=== PATIENT | female | born 1980 | race African-American/Black ===

== ENCOUNTER 2019-02-16 22:55 | Emergency (ER) | payer OTHER ==
--- NOTE | 2019-02-16 23:49 | RADIOLOGY REPORT (SQ) ---
EXAM DESCRIPTION: [facility]: Cervical spine radiographs Views: 3 CLINICAL HISTORY: 38 years Female, fall COMPARISON: None. FINDINGS: Odontoid view is normal. No focal subluxation. There is mild anterior ligament calcification at C4-C5 and C5-C6. Vertebral heights and disc spaces are preserved. No acute prevertebral edema. No acute fracture. IMPRESSION: 1. No acute fracture or subluxation.
--- NOTE | 2019-02-16 23:50 | RADIOLOGY REPORT (SQ) ---
EXAM DESCRIPTION: CT HEAD WITHOUT IV CONTRAST COMPLETED DATE/TME: 02/16/2019 00:00 CLINICAL HISTORY: 38 years, Female, fall COMPARISON: None. TECHNIQUE: Noncontrast CT images of the head were performed. Coronal and sagittal reformations were created. Images stored on PACS. All CT scanners at this facility use dose modulation, iterative reconstruction, and/or weight based dosing when appropriate to reduce radiation dose to as low as reasonably achievable (ALARA). [facility]: Dose Right [facility]: CareDose [facility]: Dose Right [facility]: Teradose 4D [facility]: [employer] Technologies LIMITATIONS: None. FINDINGS: Brain parenchyma is normal in attenuation. No acute intracranial hemorrhage, mass effect, or extra-axial fluid is seen. The ventricles, sulci, and basilar cisterns are normal in size and configuration. Globes and orbits are normal. Paranasal sinuses and mastoid air cells are clear. There are no depressed skull fractures. IMPRESSION: No acute intracranial abnormality. TECHNICAL DOCUMENTATION: Quality ID # 436: Final reports with documentation of one or more dose reduction techniques (e.g., Automated exposure control, adjustment of the mA and/or kV according to patient size, use of iterative reconstruction technique) copyright 2010 [employer]- All Rights Reserved
[2019-02-17] MEDS ORDERED: DIPH/PERTUSS(ACELL)/TETANUS VAC/PF 0.5 ML SYR (>=10YO) IM ONE (00:15)
[2019-02-17] MEDS ORDERED: ACETAMINOPHEN 325 MG TABLET PO ONE (00:28)
[2019-02-17] MEDS ORDERED: LIDOCAINE 1% INJ-PF (10 MG/ML) 30 ML SDV INJ ONE (01:49)
--- NOTE | 2019-02-17 02:47 | ER Document Report ---
ED General <JENAANGELITAERIKA - Last Filed: 02/17/19 02:52> - General TRAVEL OUTSIDE OF THE [place] IN LAST 30 DAYS: No <MELI LEONARDO - Last Filed: 02/17/19 03:11> - General Chief Complaint: Laceration Stated Complaint: FELL,LACERATION TO CHIN Time Seen by Provider: 02/17/19 00:02 Primary Care Provider: LILIBETH WISEMAN DO [Primary Care Provider] - Follow up as needed - HPI Notes: Patient is a 38-year-old female who presents to the emergency department for evaluation. She was actually on hospital grounds, had come to bring her mother to be evaluated. She tripped and fell, lacerating her chin. She complains of pain in her head and neck. She states her last tetanus shot was approximately 9 to 10 years ago. She denies loss of consciousness. No visual changes. (MELI LEONARDO) - Related Data Allergies/Adverse Reactions: nickel Allergy (Verified 02/16/19 22:58) Past Medical History - General Information source: Patient - Social History Smoking Status: Never Smoker Chew tobacco use (# tins/day): No Frequency of alcohol use: None Drug Abuse: None Family History: Reviewed & Not Pertinent Patient has suicidal ideation: No Patient has homicidal ideation: No - Past Medical History Cardiac Medical History: Reports: Hx Hypercholesterolemia, Hx Hypertension Endocrine Medical History: Reports: Hx Diabetes Mellitus Type 2 Renal/ Medical History: Denies: Hx Peritoneal Dialysis GI Medical History: Reports: Hx Irritable Bowel <MELI LEONARDO - Last Filed: 02/17/19 03:11> Review of Systems - Review of Systems Constitutional: No symptoms reported EENT: No symptoms reported Cardiovascular: No symptoms reported Respiratory: No symptoms reported Gastrointestinal: No symptoms reported Genitourinary: No symptoms reported Musculoskeletal: See HPI Skin: See HPI Neurological/Psychological: No symptoms reported <MELI LEONARDO - Last Filed: 02/17/19 03:11> Physical Exam <MEIL LEONARDO - Last Filed: 02/17/19 03:11> - Vital signs Vitals: Temp Pulse Resp BP Pulse Ox 98.3 F 112 H 18 146/97 H 98 02/16/19 23:04 02/16/19 23:04 02/16/19 23:04 02/16/19 23:04 02/16/19 23:04 - Notes Notes: Vital signs reviewed, please refer to chart. Head is normocephalic, atraumatic. Pupils equal round, reactive to light. Neck is supple without meningismus. Heart is regular rate and rhythm. Lungs are clear to auscultation bilaterally. Abdomen is soft, nontender, normoactive bowel sounds throughout. Extremities without cyanosis, clubbing. Posterior calves are nontender. Peripheral pulses are equal. Skin is warm and dry. She is a 1.5 cm U-shaped laceration under the chin with mild gaping and subcutaneous tissue. No foreign body. Patient is awake, alert, oriented x3. Cranial nerves II - XII are grossly intact without focal neurological deficits. Strength is plus 5 out of 5 bilateral lower extremities. Sensation is intact. Reflexes symmetrical. Intact [id number], rapid altering movements, [id number]-tocf. (MELI LEONARDO) Course - Diagnostic Test Radiology reviewed: Reports reviewed <MELI LEONARDO - Last Filed: 02/17/19 03:11> - Re-evaluation Re-evalutation: 02/17/19 03:09 Patient presents emergency department for evaluation after a fall. She had CT scan of the head and cervical spine ordered, no acute abnormality was noted. Attention was turned to the wound. Her tetanus is updated. Wound was cleansed and closed. Approximated well. Patient given wound care instructions. She is to follow-up with primary care next week for suture removal, return to the emergency department with worsening or new concerning symptoms of any sort. (MELI LEONARDO) - Vital Signs Vital signs: Temp Pulse Resp BP Pulse Ox 98.3 F 112 H 18 146/97 H 98 02/16/19 23:04 02/16/19 23:04 02/16/19 23:04 02/16/19 23:04 02/16/19 23:04 - Diagnostic Test Radiology results interpreted by me: 02/17/19 03:10 Cervical Spine X-Ray 02/16/19 00:00 IMPRESSION: 1. No acute fracture or subluxation. Head CT 02/16/19 00:00 IMPRESSION: No acute intracranial abnormality. TECHNICAL DOCUMENTATION: Quality ID # 436: Final reports with documentation of one or more dose reduction techniques (e.g., Automated exposure control, adjustment of the mA and/or kV according to patient size, use of iterative reconstruction technique) copyright 2011 [employer]- All Rights Reserved (MELI LEONARDO) Procedures - Laceration/Wound Repair chin Wound length (cm): 1.5 Wound's Depth, Shape: Flap Laceration pre-procedure: Sterile PPE donned, Sterile drapes applied, Shur-Clens applied Anesthetic type: 1% Lidocaine Volume Anesthetic (mLs): 4 Wound explored: Clean, No foreign body removed Wound Repaired With: Sutures Suture Size/Type: 6:0, Nylon Number of Sutures: 4 Layer Closure?: No Post-procedure NV exam normal: Yes Complications: No <ERIKA CAMP - Last Filed: 02/17/19 02:52> Discharge <ERIKA CAMP - Last Filed: 02/17/19 02:52> <MELI LEONARDO - Last Filed: 02/17/19 03:11> - Discharge Clinical Impression: Laceration of chin without complication Condition: Stable Disposition: HOME, SELF-CARE Instructions: Antibiotic Ointment Protection ([facility]), Laceration Care ([facility]), Tetanus Immunization Given ([facility]) Additional Instructions: Keep wound clean with soap and water. Have sutures removed in 5 to 7 days. If you develop increased redness, pain, fever, vomiting, or any other new concerning symptoms, return immediately to the emergency department for re- evaluation. Referrals: LILIBETH WISEMAN DO [Primary Care Provider] - Follow up as needed
[2019-02-17 03:55] VITALS: BP 139/72
== END 2019-02-17 03:55 | disposition home or self-care (01) ==
LOC: ER 22:55
DX: S01.81XA Laceration without foreign body of other part of head, initial encounter (principal); R51 Headache; M54.2 Cervicalgia; W19.XXXA Unspecified fall, initial encounter; Y92.481 Parking lot as the place of occurrence of the external cause; E11.9 Type 2 diabetes mellitus without complications; I10 Essential (primary) hypertension; Z23 Encounter for immunization
CPT/HCPCS: 99283; 90471; 72040; 70450; 90715; 12011; J3490

== ENCOUNTER → 2020-01-23 | Outpatient (CLI) | payer BC ==
[2020-01-23 12:44] LABS: ABSOLUTE LYMPHOCYTES (AUTO) 2.2 10^3/uL (0.5-4.7); ABSOLUTE MONOCYTES (AUTO) 0.5 10^3/uL (0.1-1.4); BASOPHILS % (AUTO) 0.5 % (0-2); EOSINOPHILS % (AUTO) 0.7 % (0-6); HEMATOCRIT 38.8 % (36.0-47.0); HEMOGLOBIN 13.6 g/dL (12.0-15.5); LYMPHOCYTES % (AUTO) 32.2 % (13-45); MEAN CORPUSCULAR HEMOGLOBIN 30.6 pg (27.0-33.4); MEAN CORPUSCULAR HGB CONC 35.1 g/dL (32.0-36.0); MEAN CORPUSCULAR VOLUME 87 fl (80-97); MONOCYTES % (AUTO) 7.8 % (3-13); PLATELET COUNT 253 10^3/uL (150-450); RED BLOOD COUNT 4.45 10^6/uL (3.72-5.28); RED CELL DISTRIBUTION WIDTH 12.4 % (11.5-14.0); SEGMENTED NEUTROPHILS % (AUTO) 58.8 % (42-78); TOTAL CELLS COUNTED % (AUTO) 100 %; WHITE BLOOD COUNT 6.8 10^3/uL (4.0-10.5)
[2020-01-23 13:05] LABS: ALBUMIN 4.3 g/dL (3.5-5.0); ALKALINE PHOSPHATASE 113 U/L (38-126); ANION GAP 10 (5-19); ASPARTATE AMINO TRANSFERASE 18 U/L (14-36); BILIRUBIN,TOTAL 0.5 mg/dL (0.2-1.3); BLOOD UREA NITROGEN 11 mg/dL (7-20); CALCIUM 9.5 mg/dL (8.4-10.2); CARBON DIOXIDE 26 mmol/L (22-30); CHLORIDE 98 mmol/L (98-107); CHOLESTEROL 226.55 mg/dL (0-200); GLUCOSE 373 mg/dL (75-110); POTASSIUM 4.5 mmol/L (3.6-5.0); TOTAL PROTEIN 7.8 g/dL (6.3-8.2); TRIGLYCERIDES 131 mg/dL (<150)
[2020-01-23 13:16] LABS: DIRECT LDL 175 mg/dL (<100)
[2020-01-24 12:36] LABS: CREATININE URINE 82.9 mg/dL (Not Estab.); MICROALBUMIN URINE 28.4 ug/mL (Not Estab.)
== END ==
LOC: OD 11:37
PROVIDERS: ATTEND Family Medicine
DX: E78.5 Hyperlipidemia, unspecified (principal); K21.0 Gastro-esophageal reflux disease with esophagitis; E11.9 Type 2 diabetes mellitus without complications
CPT/HCPCS: 36415; 80053; 80061; 82043; 82570; 83036; 84443; 85025

== ENCOUNTER 2020-02-03 08:50 | Day surgery (SDC) | payer BC ==
[~2020-02-03 08:50] MED LIST: LACTATED RINGERS 1000 ML IV PRN; LIDOCAINE 0.5% INJ-PF (5 MG/ML) 50 ML SDV SUBCUT PRN
[2020-02-03] MEDS ORDERED: PROPOFOL INJ 200 MG/20 ML VIAL IV ONE (11:02)
--- NOTE | 2020-02-03 11:53 | Operative Report ---
Operative Report DATE OF SURGERY: 02/03/20 Operative Report: The risks benefits and alternatives of the procedure explained to the patient in detail and informed consent is obtained.A GIF Olympus video scope was inserted into the patient's mouth and hypopharynx ,the esophagus is identified intubated and insufflated ,the scope was then advanced through the esophagus stomach and duodenum, retroflexion maneuver is done, the esophagus stomach and first and second portions of the duodenum examined PREOPERATIVE DIAGNOSIS: Epigastric pain rule out peptic ulcer disease POSTOPERATIVE DIAGNOSIS: Gastritis status post biopsy rule out Helicobacter pylori, esophagitis status post biopsy rule out Cheung's esophagus OPERATION: EGD with biopsy SURGEON: STEPHANIE WALLACE ANESTHESIA: LMAC TISSUE REMOVED OR ALTERED: As noted above. COMPLICATIONS: None. ESTIMATED BLOOD LOSS: None. INTRAOPERATIVE FINDINGS: As noted above. PROCEDURE: Patient tolerated the procedure well. No immediate postprocedure complications are noted. Patient is discharged in good condition. Discharge date 02/02/2020. Discharge diet: Regular. Discharge activity: Regular. 2 to 3-week follow-up to discuss findings. Patient is instructed call the office or proceed to the emergency room should there be any further problems or questions. Wait on the pathology.
[2020-02-03 12:13] VITALS: BP 139/87
== END 2020-02-03 12:15 | disposition home or self-care (01) ==
LOC: OROUT 08:50
PROVIDERS: ATTEND Internal Medicine Gastroenterology
DX: K21.0 Gastro-esophageal reflux disease with esophagitis (principal); K29.50 Unspecified chronic gastritis without bleeding; K58.9 Irritable bowel syndrome, unspecified; I10 Essential (primary) hypertension; E11.9 Type 2 diabetes mellitus without complications; M79.7 Fibromyalgia; A60.00 Herpesviral infection of urogenital system, unspecified; J45.909 Unspecified asthma, uncomplicated; E78.00 Pure hypercholesterolemia, unspecified; M32.9 Systemic lupus erythematosus, unspecified; Z79.84 Long term (current) use of oral hypoglycemic drugs; Z79.899 Other long term (current) drug therapy; Z79.4 Long term (current) use of insulin; Z03.818 Encounter for observation for suspected exposure to other biological agents ruled out
CPT/HCPCS: 43239; 82962; 87635; 88342 ×2; 88305 ×2; 00731; J2704; 731

== ENCOUNTER → 2020-02-10 | Outpatient (CLI) | payer BC ==
--- NOTE | 2020-02-10 08:38 | RADIOLOGY REPORT (SQ) ---
EXAM DESCRIPTION: U/S ABDOMEN LIMITED W/O DOP IMAGES COMPLETED DATE/TIME: 02/10/2020 8:02 am REASON FOR STUDY: RUQ PAIN (R10.11) R10.11 RIGHT UPPER QUADRANT PAIN COMPARISON: None. TECHNIQUE: Dynamic and static grayscale images acquired of the abdomen and recorded on PACS. Additio nal selected color Doppler and spectral images recorded. LIMITATIONS: None. FINDINGS: PANCREAS: The visualized portions of the pancreas appear normal. LIVER: Increased echogenicity of the hepatic parenchyma associated with attenuation of the far field. LIVER VASCULATURE: Hepatopetal directional flow in the portal veins. GALLBLADDER: The gallbladder wall measures 1.8 mm in thickness. There is no cholelithiasis, sludge o r pericholecystic fluid. ULTRASOUND-DETECTED SINGLETON'S SIGN: Negative. INTRAHEPATIC DUCTS AND COMMON DUCT: The common bile duct measures 4.8 mm in diameter. There is no di latation of the intrahepatic bile ducts. INFERIOR VENA CAVA: Patent. AORTA: The abdominal aorta is obscured by overlying bowel. RIGHT KIDNEY: The right kidney measures 10.4 cm in length. There is no hydronephrosis. PERITONEAL AND RIGHT PLEURAL SPACE: No ascites or effusions. OTHER: No other findings. IMPRESSION: 1. Increased echogenicity of the hepatic parenchyma suggestive underlying hepatic steat osis. 2. Nonvisualization of the abdominal aorta due to overlying bowel gas. 3. No other abnormality of the right upper quadrant. TECHNICAL DOCUMENTATION: JOB ID: [id number] 2010 [employer]- All Rights Reserved Reading location - IP/workstation name: [email or web address]
--- NOTE | 2020-02-10 11:05 | RADIOLOGY REPORT (SQ) ---
EXAM DESCRIPTION: NM HIDA SCAN WITH CCK IMAGES COMPLETED DATE/TIME: 02/10/2020 10:43 am REASON FOR STUDY: RUQ PAIN (R10.11) R10.11 RIGHT UPPER QUADRANT PAIN COMPARISON: Ultrasound of the abdomen from 02/10/2020. RADIONUCLIDE AND DOSE: DOSAGE RADIONUCLIDE: 5.36 millicuries Tc99m Mebrofenin. DOSAGE CCK: 1.7 micrograms. DOSAGE MORPHINE: None required. The route of agent administration: Intravenous TECHNIQUE: Serial imaging right upper quadrant up to 60 minutes following injection of radionuclide. CCK injected after gallbladder visualized. LIMITATIONS: None. FINDINGS: There is prompt uptake and excretion of the radiotracer by the hepatic parenchyma with tra nsient visualization of the intra and extrahepatic bile ducts. Activity is noted within the lumens o f the gallbladder and bowel within 30 minutes of injection of the radiotracer. After the 60 minutes the CCK was injected intravenously and imaging of the right upper quadrant was extended for an additi onal 20 minutes. There is prompt emptying of the gallbladder with a calculated ejection fraction at 7 minutes of 73.4%. The patient's symptoms (nausea, epigastric and right upper quadrant pain) were r eproduced with the injection of CCK. IMPRESSION: 1. No scintigraphic evidence of acute cholecystitis. 2. Normal gallbladder ejection fraction. TECHNICAL DOCUMENTATION: JOB ID: [id number] 2010 [employer]- All Rights Reserved Reading location - IP/workstation name: [email or web address]
== END ==
LOC: RAD 07:28
PROVIDERS: ATTEND Internal Medicine Gastroenterology
DX: R10.11 Right upper quadrant pain (principal)
CPT/HCPCS: 76705; 78227; J2805; A9537; Q9969

== ENCOUNTER → 2020-02-23 | Outpatient (CLI) | payer BC ==
[2020-02-23 12:02] LABS: ABSOLUTE LYMPHOCYTES (AUTO) 2.2 10^3/uL (0.5-4.7); ABSOLUTE NEUT (AUTO) 5.5 10^3/uL (1.7-8.2); BASOPHILS % (AUTO) 0.4 % (0-2); EOSINOPHILS % (AUTO) 0.2 % (0-6); HEMATOCRIT 38.6 % (36.0-47.0); HEMOGLOBIN 13.1 g/dL (12.0-15.5); LYMPHOCYTES % (AUTO) 25.4 % (13-45); MEAN CORPUSCULAR VOLUME 88 fl (80-97); MONOCYTES % (AUTO) 11.1 % (3-13); PLATELET COUNT 297 10^3/uL (150-450); RED BLOOD COUNT 4.37 10^6/uL (3.72-5.28); RED CELL DISTRIBUTION WIDTH 13.1 % (11.5-14.0); SEGMENTED NEUTROPHILS % (AUTO) 62.9 % (42-78); TOTAL CELLS COUNTED % (AUTO) 100 %; WHITE BLOOD COUNT 8.8 10^3/uL (4.0-10.5)
[2020-02-23 12:17] LABS: ALBUMIN 4.6 g/dL (3.5-5.0); ALKALINE PHOSPHATASE 111 U/L (38-126); ANION GAP 10 (5-19); ASPARTATE AMINO TRANSFERASE 19 U/L (14-36); BILIRUBIN,TOTAL 0.4 mg/dL (0.2-1.3); BLOOD UREA NITROGEN 9 mg/dL (7-20); CALCIUM 10.3 mg/dL (8.4-10.2); CARBON DIOXIDE 27 mmol/L (22-30); CHLORIDE 102 mmol/L (98-107); CHOLESTEROL 228.48 mg/dL (0-200); GLUCOSE 75 mg/dL (75-110); POTASSIUM 4.1 mmol/L (3.6-5.0); TOTAL PROTEIN 8.5 g/dL (6.3-8.2); TRIGLYCERIDES 87 mg/dL (<150)
[2020-02-23 12:30] LABS: DIRECT LDL 133 mg/dL (<100)
[2020-02-23 12:38] LABS: LITHIUM < 0.2 mEq/L (0.6-1.2)
== END ==
LOC: OD 10:40
PROVIDERS: ATTEND Psychiatry & Neurology Psychiatry
DX: F31.81 Bipolar II disorder (principal)
CPT/HCPCS: 36415; 80053; 80061; 80178; 84443; 85025

== ENCOUNTER → 2020-03-19 | Outpatient (CLI) | payer BC ==
--- NOTE | 2020-03-19 12:45 | RADIOLOGY REPORT (SQ) ---
EXAM DESCRIPTION: CHEST PA/LATERAL IMAGES COMPLETED DATE/TIME: 03/19/2020 12:35 pm REASON FOR STUDY: PRE-OP COMPARISON: None. EXAM PARAMETERS: NUMBER OF VIEWS: two views TECHNIQUE: Digital Frontal and Lateral radiographic views of the chest acquired. RADIATION DOSE: NA LIMITATIONS: none FINDINGS: LUNGS AND PLEURA: No opacities, masses or pneumothorax. No pleural effusion. MEDIASTINUM AND HILAR STRUCTURES: No masses or contour abnormalities. HEART AND VASCULAR STRUCTURES: Heart normal size. No evidence for failure. BONES: No acute findings. HARDWARE: None in the chest. OTHER: No other significant finding. IMPRESSION: NO SIGNIFICANT RADIOGRAPHIC FINDING IN THE CHEST. TECHNICAL DOCUMENTATION: JOB ID: [id number] 2010 [employer]- All Rights Reserved Reading location - IP/workstation name: [email or web address]
--- NOTE | 2020-03-19 13:06 | EKG REPORT ---
SEVERITY:- OTHERWISE NORMAL ECG - SINUS RHYTHM NONSPECIFIC ST-T CHANGES- INFERIOR LEADS : Confirmed by: Dickson Fuller MD 19-Mar-2020 13:05:43
[2020-03-19 13:35] LABS: ABSOLUTE EOSINOPHILS # (AUTO) 0.1 10^3/uL (0.0-0.6); ABSOLUTE LYMPHOCYTES (AUTO) 2.2 10^3/uL (0.5-4.7); ABSOLUTE MONOCYTES (AUTO) 0.6 10^3/uL (0.1-1.4); ABSOLUTE NEUT (AUTO) 4.1 10^3/uL (1.7-8.2); BASOPHILS % (AUTO) 0.5 % (0-2); EOSINOPHILS % (AUTO) 0.7 % (0-6); HEMATOCRIT 40.5 % (36.0-47.0); HEMOGLOBIN 13.8 g/dL (12.0-15.5); LYMPHOCYTES % (AUTO) 31.6 % (13-45); MEAN CORPUSCULAR HEMOGLOBIN 30.3 pg (27.0-33.4); MEAN CORPUSCULAR VOLUME 89 fl (80-97); MONOCYTES % (AUTO) 8.8 % (3-13); PLATELET COUNT 274 10^3/uL (150-450); RED BLOOD COUNT 4.55 10^6/uL (3.72-5.28); RED CELL DISTRIBUTION WIDTH 13.3 % (11.5-14.0); SEGMENTED NEUTROPHILS % (AUTO) 58.4 % (42-78); TOTAL CELLS COUNTED % (AUTO) 100 %; WHITE BLOOD COUNT 7.1 10^3/uL (4.0-10.5)
[2020-03-19 13:54] LABS: ANION GAP 9 (5-19); BLOOD UREA NITROGEN 9 mg/dL (7-20); CALCIUM 9.5 mg/dL (8.4-10.2); CARBON DIOXIDE 22 mmol/L (22-30); CHLORIDE 104 mmol/L (98-107); GLUCOSE 330 mg/dL (75-110); POTASSIUM 4.5 mmol/L (3.6-5.0)
== END ==
LOC: OD 12:03
PROVIDERS: ATTEND Orthopaedic Surgery
DX: Z01.810 Encounter for preprocedural cardiovascular examination (principal); Z01.811 Encounter for preprocedural respiratory examination; Z01.89 Encounter for other specified special examinations
CPT/HCPCS: 36415; 71046; 80048; 85025; 93005; 93010

== ENCOUNTER 2020-04-09 17:25 | Inpatient (IN) | payer BC ==
[2020-04-09] MEDS ORDERED: RINGERS SOLUTION,LACTATED 1,000 ML IV PRN (18:20)
[2020-04-09 19:35] LABS: ANION GAP 6 (5-19); BLOOD UREA NITROGEN 7 mg/dL (7-20); CARBON DIOXIDE 24 mmol/L (22-30); CHLORIDE 105 mmol/L (98-107); POTASSIUM 3.9 mmol/L (3.6-5.0)
[2020-04-09 19:40] LABS: GLUCOSE 424 mg/dL (75-110)
[2020-04-09] MEDS: CEFTRIAXONE 2 GM/D5W RTU 2 GM/50 ML RTUPB IV SCH (21:21)
[2020-04-09] MEDS: RINGERS SOLUTION,LACTATED 1,000 ML IV PRN (21:21)
[2020-04-09] MEDS: MORPHINE SULFATE 10 MG/ML INJ IV PRN (21:22)
[2020-04-09] MEDS ORDERED: ALBUTEROL SULFATE HFA (90 MCG/PUFF) 8 GM MDI (1 MDI/ER DISP) IH PRN (21:55)
[2020-04-09] MEDS ORDERED: INSULIN ASPART 1 UNIT SUBCUT SCH (22:00)
[2020-04-09] MEDS ORDERED: INSULIN GLARGINE,HUM.REC.ANLOG 1,000 UNIT/10 ML VIAL (PYX) SUBCUT PRN (22:31)
[2020-04-09] MEDS ORDERED: INSULIN GLARGINE,HUM.REC.ANLOG 1,000 UNIT/10 ML VIAL SUBCUT ONE (22:45)
[2020-04-09] MEDS: VANCOMYCIN HCL 1,000 MG in DEXTROSE 5%-WATER 250 ML IV SCH (23:42)
[2020-04-09] MEDS: OXYCODONE-ACETAMINOPHEN 5-325 MG TABLET PO PRN (23:52)
[2020-04-10] MEDS ORDERED: DEXTROSE 40% GEL 15 GM TUBE PO PRN (01:00)
[2020-04-10] MEDS ORDERED: GLUCAGON,HUMAN RECOMB 1 MG INJ IM PRN (01:00)
[2020-04-10] MEDS ORDERED: INSULIN LISPRO 100 UNIT/ML 3 ML VIAL SUBCUT ONE (01:00)
[2020-04-10] MEDS ORDERED: DEXTROSE 50%-WATER SYRINGE 25 GM/50 ML DOSE IV PRN (01:00)
[2020-04-10] MEDS ORDERED: DEXTROSE 50%-WATER SYRINGE 12.5 GM/25 ML DOSE IV PRN (01:00)
[2020-04-10] MEDS ORDERED: DEXTROSE 40% GEL 15 GM TUBE X 2 PO PRN (01:00)
[2020-04-10] MEDS: MORPHINE SULFATE 10 MG/ML INJ IV PRN ×2 (04:31→13:23)
[2020-04-10] MEDS: VANCOMYCIN HCL 1,000 MG in DEXTROSE 5%-WATER 250 ML IV SCH ×3 (06:50→21:57)
--- NOTE | 2020-04-10 07:27 | PDOC H&P ---
History of Present Illness Admission Date/PCP: 04/09/20 17:25 DONG REES DO Patient complains of: Left forearm pain with swelling. History of Present Illness: MARIANA GORDON is a 40 year old female who underwent carpal tunnel release approximately 3 years ago when this past weekend she noticed increasing swelling and pain from the forearm. Was seen in the emergency room where labs were performed and patient received antibiotics. She subsequently saw me hours after being in the emergency room there was notable drainage from the surgical incision with erythema noted. At that point decision was made to proceed with admission IV antibiotics at operative intervention. Patient states her pain is slightly improved since yesterday continues to have numbness in the middle finger. Did have fever initially but that has resolved. Past Medical History Cardiac Medical History: Reports: Hyperlipidema Denies: Myocardial Infarction, Hypertension Pulmonary Medical History: Reports: Asthma - MILD Denies: Bronchitis, Chronic Obstructive Pulmonary Disease (COPD), Pneumonia Neurological Medical History: Denies: Seizures Endocrine Medical History: Reports: Diabetes Mellitus Type 2 Musculoskeltal Medical History: Reports: Arthritis Psychiatric Medical History: Reports: Depression Hematology: Denies: Anemia Social History Smoking Status: Former Smoker Last Time Smoked: High School Frequency of Alcohol Use: Occasional Hx Recreational Drug Use: No Drugs: None Hx Prescription Drug Abuse: Yes - Suicide Attempt Family History Family History: Reviewed & Not Pertinent Parental Family History Reviewed: No Children Family History Reviewed: No Sibling(s) Family History Reviewed.: No Medication/Allergy Home Medications: Albuterol Sulfate [Ventolin Hfa 8 gm Mdi (1 Mdi/ER Disp)] 2 puff IH ASDIR PRN 01/31/20 Fluticasone Propionate [Flovent Hfa] 2 puff IH BID 01/31/20 Hydrochlorothiazide 12.5 mg PO DAILY 01/31/20 Hydroxychloroquine Sulfate [Plaquenil 200 mg Tablet] 200 mg PO BID 01/31/20 Insulin Aspart [Novolog Flexpen] 0 unit SUBCUT .SLD SCALE 01/31/20 Insulin Glargine,Hum.rec.anlog [Lantus Insulin 100 Unit/mL Insulin Pen] 38 unit SUBCUT QHS 01/31/20 Lisinopril [Zestril] 20 mg PO DAILY 01/31/20 Pregabalin [Lyrica] 200 mg PO TID 01/31/20 Valacyclovir HCl [Valacyclovir] 1,000 mg PO DAILY 01/31/20 Meloxicam [Mobic 7.5 mg Tablet] 7.5 mg PO DAILY 04/09/20 Sumatriptan Succinate [Imitrex] 25 mg PO 04/09/20 Allergies/Adverse Reactions: nickel Allergy (Intermediate, Verified 02/03/20 09:16) RASH Review of Systems Constitutional: PRESENT: as per HPI, fever(s). ABSENT: chills, headache(s), weight gain, weight loss Eyes: ABSENT: visual disturbances Ears: ABSENT: hearing changes Cardiovascular: ABSENT: chest pain, dyspnea on exertion, edema, orthropnea, palpitations Respiratory: ABSENT: cough, hemoptysis Gastrointestinal: PRESENT: abdominal pain. ABSENT: constipation, diarrhea, hematemesis, hematochezia, nausea, vomiting Genitourinary: ABSENT: dysuria, hematuria Musculoskeletal: PRESENT: as per HPI Integumentary: ABSENT: rash, wounds Neurological: ABSENT: abnormal gait, abnormal speech, confusion, dizziness, focal weakness, syncope Psychiatric: ABSENT: anxiety, depression, homidical ideation, suicidal ideation Endocrine: ABSENT: cold intolerance, heat intolerance, menstrual abnormalities, polydipsia, polyuria Hematologic/Lymphatic: ABSENT: easy bleeding, easy bruising, lymphadenopathy Physical Exam Vital Signs: Temp Pulse Resp BP Pulse Ox 97.7 F 85 16 134/81 H 96 04/10/20 04:32 04/10/20 04:32 04/10/20 04:32 04/10/20 04:32 04/10/20 04:32 Intake & Output 04/09/20 04/10/20 04/11/20 06:59 06:59 06:59 Intake Total 1500 Balance 1500 Weight 83.461 kg General appearance: PRESENT: no acute distress, well-developed, well-nourished Head exam: PRESENT: atraumatic, normocephalic Eye exam: PRESENT: conjunctiva pink, EOMI, PERRLA. ABSENT: scleral icterus Ear exam: PRESENT: normal external ear exam Mouth exam: PRESENT: moist, tongue midline Neck exam: PRESENT: full ROM. ABSENT: carotid bruit, JVD, lymphadenopathy, thyromegaly Cardiovascular exam: PRESENT: RRR. ABSENT: diastolic murmur, rubs, systolic murmur Pulses: PRESENT: normal dorsalis pedis pul, +2 pedal pulses bilateral Vascular exam: PRESENT: normal capillary refill GI/Abdominal exam: PRESENT: normal bowel sounds, soft. ABSENT: distended, guarding, mass, organolmegaly, rebound, tenderness Rectal exam: PRESENT: deferred Musculoskeletal exam: PRESENT: other - Left upper extremity: Surgical incision with central diastases. Able to express small amount of purulent drainage erythema noted only proximal forearm. Intact flexion of the IP/MP joints. Pain with terminal extension of the middle finger. Two-point discrimination 6 mm thumb 7 mm index finger 7 mm ring finger 9 mm middle finger. Abductor pollicis brevis strength 4+/5. No tenderness along the carpal tunnel. Negative Tinel's. Neurological exam: PRESENT: alert, awake, oriented to person, oriented to place, oriented to time, oriented to situation, CN II-XII grossly intact. ABSENT: motor sensory deficit Psychiatric exam: PRESENT: appropriate affect, normal mood. ABSENT: homicidal ideation, suicidal ideation Skin exam: PRESENT: dry, intact, warm. ABSENT: cyanosis, rash Results Laboratory Results: 04/09/20 19:00 04/09/20 19:00 Sodium 135.0 L Potassium 3.9 Chloride 105 Carbon Dioxide 24 Anion Gap 6 BUN 7 Creatinine 0.50 L Est GFR ( Amer) > 60 Glucose 424 H* Calcium 9.0 Assessment & Plan - Diagnosis (1) Post-operative infection Qualifiers: Encounter type: subsequent encounter Postoperative infection type: deep incisional surgical site Qualified Code(s): T81.42XD - Infection following a procedure, deep incisional surgical site, subsequent encounter Is this a current diagnosis for this admission?: Yes Plan: Patient has developed infection of her left carpal tunnel incision unfortunately since likely partially related to her brittle diabetes with the elevated hemoglobin A1c of 12. At this point I have consulted the hospitalist for management of her glucose levels appreciate consult. As per the patient's arm given the drainage I have recommended operative intervention which includes irrigation debridement of left forearm patient understands we will extend the incision proximally and distally to ensure adequate debridement. Anticipate will require additional antibiotics over the next 24-48 hours. Risk and benefits of the surgical procedure have been explained risk including neurovascular is, postoperative pain, postoperative stiffness, recurrent infection patient is verbalized understanding consented for surgical procedure.
[2020-04-10 07:29] LABS: ABSOLUTE BASOPHILS # (AUTO) 0.1 10^3/uL (0.0-0.2); ABSOLUTE EOSINOPHILS # (AUTO) 0.1 10^3/uL (0.0-0.6); ABSOLUTE LYMPHOCYTES (AUTO) 2.1 10^3/uL (0.5-4.7); ABSOLUTE MONOCYTES (AUTO) 0.8 10^3/uL (0.1-1.4); ABSOLUTE NEUT (AUTO) 7.3 10^3/uL (1.7-8.2); BASOPHILS % (AUTO) 1.2 % (0-2); HEMATOCRIT 33.4 % (36.0-47.0); HEMOGLOBIN 11.3 g/dL (12.0-15.5); LYMPHOCYTES % (AUTO) 20.1 % (13-45); MEAN CORPUSCULAR HEMOGLOBIN 30.1 pg (27.0-33.4); MEAN CORPUSCULAR HGB CONC 33.8 g/dL (32.0-36.0); MEAN CORPUSCULAR VOLUME 89 fl (80-97); MONOCYTES % (AUTO) 7.5 % (3-13); PLATELET COUNT 243 10^3/uL (150-450); RED BLOOD COUNT 3.75 10^6/uL (3.72-5.28); RED CELL DISTRIBUTION WIDTH 13.7 % (11.5-14.0); SEGMENTED NEUTROPHILS % (AUTO) 70.2 % (42-78); TOTAL CELLS COUNTED % (AUTO) 100 %; WHITE BLOOD COUNT 10.4 10^3/uL (4.0-10.5)
[2020-04-10] MEDS: INSULIN LISPRO 100 UNIT/ML 3 ML VIAL SUBCUT SCH ×4 (07:38→22:10)
[2020-04-10] MEDS ORDERED: SUCCINYLCHOLINE CHLORIDE INJ 200 MG/10 ML VIAL ONE (08:05)
[2020-04-10] MEDS: HYDROCHLOROTHIAZIDE 12.5 MG TABLET PO SCH (09:19)
[2020-04-10] MEDS: PREGABALIN 100 MG CAPSULE PO SCH ×3 (09:20→20:27)
[2020-04-10] MEDS: LISINOPRIL 10 MG TABLET PO SCH (09:20)
[2020-04-10] MEDS: HYDROXYCHLOROQUINE SULFATE 200 MG TABLET PO SCH ×2 (09:20→20:17)
[2020-04-10] MEDS: VALACYCLOVIR HCL 500 MG TABLET PO SCH (09:20)
[2020-04-10] MEDS ORDERED: VANCOMYCIN HCL INJ 1000 MG VIAL IV SCH (10:00)
[2020-04-10] MEDS ORDERED: CEFTRIAXONE INJ 1000 MG VIAL IV SCH (10:00)
[2020-04-10] MEDS ORDERED: ALBUTEROL SULFATE HFA (90 MCG/PUFF) 200 PUFF/8.5 GM MDI IH PRN (10:19)
[2020-04-10] MEDS: FLUTICASONE PROPIONATE HFA 110 MCG/PUFF 12 GM MDI IH SCH ×2 (10:39→20:14)
--- NOTE | 2020-04-10 13:07 | PDOC CONSULTATION ---
Consultation Consult Date: 04/10/20 Attending physician:: DONG REES Provider Consulted: JAG KELLY Consult reason:: diabetes management History of Present Illness Admission Date/PCP: 04/09/20 17:25 DONG REES DO Patient complains of: Drainage and pain from her left hand History of Present Illness: MARIANA GORDON is a 40 year old female with a history of type II diabetes mellitus, fibromyalgia, chronic lower back pain, lupus, Sjogren's, who presents to the hospital for evaluation of drainage and pain from the site of her carpal tunnel release surgery on her left hand. Suspected to be having infection of the site and is planned for OR by orthopedics. Hospitalist service consulted for diabetes management as patient's came in hyperglycemic in the 400s and hemoglobin A1c is 12. Patient states that she takes Lantus 38 units nightly with sliding scale NovoLog and metformin 500 mg twice a day. She states that her blood sugar when fasting ranges mostly in the 200s. She has history of diabetes neuropathy and has had diabetes for several years now. She currently denies any shortness of breath chest pain, fever or chills. Past Medical History Cardiac Medical History: Reports: Hyperlipidema Denies: Myocardial Infarction, Hypertension Pulmonary Medical History: Reports: Asthma - MILD Denies: Bronchitis, Chronic Obstructive Pulmonary Disease (COPD), Pneumonia Neurological Medical History: Denies: Seizures Endocrine Medical History: Reports: Diabetes Mellitus Type 2 Musculoskeltal Medical History: Reports: Arthritis Psychiatric Medical History: Reports: Depression Hematology: Denies: Anemia Past Surgical History Past Surgical History: Reports: Orthopedic Surgery - Carpal tunnel release Social History Smoking Status: Former Smoker Last Time Smoked: High School Frequency of Alcohol Use: Occasional Hx Recreational Drug Use: No Drugs: None Hx Prescription Drug Abuse: Yes - Suicide Attempt Family History Family History: DM, Hypertension, Other - CHF Parental Family History Reviewed: Yes Children Family History Reviewed: NA Sibling(s) Family History Reviewed.: Yes Medication/Allergy Home Medications: Albuterol Sulfate [Ventolin Hfa 8 gm Mdi (1 Mdi/ER Disp)] 2 puff IH ASDIR PRN 01/31/20 Fluticasone Propionate [Flovent Hfa] 2 puff IH BID 01/31/20 Hydrochlorothiazide 12.5 mg PO DAILY 01/31/20 Hydroxychloroquine Sulfate [Plaquenil 200 mg Tablet] 200 mg PO BID 01/31/20 Insulin Aspart [Novolog Flexpen] 0 unit SUBCUT .SLD SCALE 01/31/20 Insulin Glargine,Hum.rec.anlog [Lantus Insulin 100 Unit/mL Insulin Pen] 38 unit SUBCUT QHS 01/31/20 Lisinopril [Zestril] 20 mg PO DAILY 01/31/20 Pregabalin [Lyrica] 200 mg PO TID 01/31/20 Valacyclovir HCl [Valacyclovir] 1,000 mg PO DAILY 01/31/20 Meloxicam [Mobic 7.5 mg Tablet] 7.5 mg PO DAILY 04/09/20 Sumatriptan Succinate [Imitrex] 25 mg PO 04/09/20 Allergies/Adverse Reactions: nickel Allergy (Intermediate, Verified 02/03/20 09:16) RASH Review of Systems Constitutional: ABSENT: fatigue, fever(s) Eyes: ABSENT: visual disturbances Ears: ABSENT: hearing changes Nose, Mouth, and Throat: ABSENT: headache(s) Cardiovascular: ABSENT: chest pain Respiratory: ABSENT: cough, dyspnea Gastrointestinal: ABSENT: abdominal pain, nausea, vomiting Genitourinary: ABSENT: dysuria Neurological: ABSENT: confusion, dizziness Endocrine: ABSENT: polyuria Hematologic/Lymphatic: ABSENT: easy bleeding Physical Exam Vital Signs: Temp Pulse Resp BP Pulse Ox 98.6 F 92 18 141/94 H 99 04/10/20 10:55 04/10/20 10:55 04/10/20 10:55 04/10/20 10:55 04/10/20 10:55 Intake & Output 04/09/20 04/10/20 04/11/20 06:59 06:59 06:59 Intake Total 1500 Balance 1500 Weight 83.461 kg General appearance: PRESENT: no acute distress, cooperative Mouth exam: PRESENT: neck supple Neck exam: ABSENT: JVD Respiratory exam: PRESENT: symmetrical, unlabored. ABSENT: accessory muscle use, retraction, tachypnea Cardiovascular exam: ABSENT: tachycardia GI/Abdominal exam: PRESENT: soft. ABSENT: ascites, distended, firm, guarding, rebound, rigid, tenderness Extremities exam: PRESENT: other - Left hand in clean dressing.. ABSENT: pedal edema Neurological exam: PRESENT: alert, awake, oriented to person, oriented to place, oriented to time, oriented to situation Psychiatric exam: ABSENT: agitated, anxious Focused psych exam: ABSENT: pressured speech Skin exam: ABSENT: jaundice Results Laboratory Results: 04/10/20 07:02 04/09/20 19:00 04/09/20 04/10/20 19:00 07:02 WBC 10.4 RBC 3.75 Hgb 11.3 L Hct 33.4 L MCV 89 MCH 30.1 MCHC 33.8 RDW 13.7 Plt Count 243 Seg Neutrophils % 70.2 Sodium 135.0 L Potassium 3.9 Chloride 105 Carbon Dioxide 24 Anion Gap 6 BUN 7 Creatinine 0.50 L Est GFR ( Amer) > 60 Glucose 424 H* Calcium 9.0 Assessment and Plan - Diagnosis (1) Uncontrolled type 2 diabetes mellitus Qualifiers: Glycemic state: with hyperglycemia Qualified Code(s): E11.65 - Type 2 diabetes mellitus with hyperglycemia Is this a current diagnosis for this admission?: Yes Plan: Hemoglobin A1c of 12 indicates very poor control of her diabetes as outpatient. Home regimen: Lantus 38 units nightly, metformin 500 mg 2 times daily, sliding scale insulin Patient currently n.p.o. Await to patient is back on diet to adjust insulin regimen. I prepare the patient to be better served on a pre-meal dose of lispro rather than just being on a NovoLog sliding scale. Continue Lantus. I will resume patient's metformin-can discontinue if patient is giving any contrast during operation. Start on lispro 6 units before meals once patient is back on a diet. Will adjust as needed. Accu-Cheks before meals and at bedtime. Diabetic diet once off n.p.o. (2) Post-operative infection Qualifiers: Encounter type: subsequent encounter Postoperative infection type: deep inc isional surgical site Qualified Code(s): T81.42XD - Infection following a procedure, deep incisional surgical site, subsequent encounter Is this a current diagnosis for this admission?: Yes Plan: Patient is planned for the OR. Currently on antibiotics. Will defer rest of management to orthopedics. (3) Hypertension Qualifiers: Hypertension type: essential hypertension Qualified Code(s): I10 - Essential (primary) hypertension Is this a current diagnosis for this admission?: Yes Plan: Continue lisinopril and hydrochlorothiazide. Blood pressure is adequate. (4) Lupus Is this a current diagnosis for this admission?: Yes Plan: Reports history of lupus [uncertain if SLE versus other forms of lupus] on hydroxychloroquine. Continue meds. - Time Time Spent with patient: 25-34 minutes Anticipated Discharge Disposition: Home, Self Care Anticipated Discharge: Other - primary provider to decide
[2020-04-10] MEDS ORDERED: ONDANSETRON HCL INJ/PF 4 MG/2 ML SDV ONE (17:50)
[2020-04-10] MEDS ORDERED: FENTANYL CITRATE INJ/PF 100 MCG/2 ML AMPUL ONE (17:50)
[2020-04-10] MEDS ORDERED: MIDAZOLAM 2 MG/2 ML INJ ONE (17:50)
[2020-04-10] MEDS ORDERED: PROPOFOL INJ 200 MG/20 ML VIAL IV ONE (17:51)
[2020-04-10] MEDS: CEFTRIAXONE 2 GM/D5W RTU 2 GM/50 ML RTUPB IV SCH (18:12)
[2020-04-10] MEDS ORDERED: MORPHINE SULFATE 10 MG/ML INJ IV PRN (18:21)
[2020-04-10] MEDS ORDERED: PROMETHAZINE HCL INJ 25 MG/1 ML VIAL IV PRN ×2 (18:21)
[2020-04-10] MEDS ORDERED: ONDANSETRON HCL INJ/PF 4 MG/2 ML SDV IV PRN (18:21)
[2020-04-10] MEDS ORDERED: MEPERIDINE HCL/PF INJ 25 MG/1 ML DISP.SYRIN IV PRN (18:21)
[2020-04-10] MEDS ORDERED: FENTANYL CITRATE INJ/PF 100 MCG/2 ML AMPUL IV PRN ×3 (18:21)
[2020-04-10] MEDS ORDERED: DIPHENHYDRAMINE HCL 50 MG/ML VIAL IV PRN (18:21)
[2020-04-10] MEDS ORDERED: BUPIVACAINE HCL 0.5 % INJ/PF 30 ML SDV ONE (18:43)
[2020-04-10] MEDS: MORPHINE SULFATE 10 MG/ML INJ ONE ×3 (19:01→19:15)
--- NOTE | 2020-04-10 19:02 | Operative Report ---
Operative Report DATE OF SURGERY: 04/10/20 PREOPERATIVE DIAGNOSIS: Postoperative infection left wrist status post carpal t unnel release POSTOPERATIVE DIAGNOSIS: Same OPERATION: Irrigation debridement left wrist with flexor tenosynovectomy SURGEON: DONG REES ANESTHESIA: GA TISSUE REMOVED OR ALTERED: Aerobic, anaerobic, AFB and fungal cultures COMPLICATIONS: None ESTIMATED BLOOD LOSS: Minimal PROCEDURE: Indication for above procedure: 40-year-old female with brittle diabetes who underwent endoscopic carpal tunnel release approximately 3 weeks ago unfortunately patient developed increasing redness swelling and pain Thursday and was seen at the emergency room where findings were concerning for infection later that day patient was seen in my office given the amount of inflammation and drainage decision was made to proceed with operative intervention. Risk and benefits of surgical procedure were explained patient verbalized understanding consented for surgical procedure. Procedure In Detail: Patient was seen and evaluated in the preoperative holding area. The upper extremity was initialized and marked. Patient is receiving scheduled antibiotics IV for bacterial prophylaxis. Patient was taken back to the operative room where transferred to the operative table and placed under general anesthesia. Once they were adequately anesthetized a nonsterile tourniquet was placed on the upper extremity. A surgical team debriefing was performed ensuring all instrumentation was available, the surgical procedure was discussed with possible concerns reviewed. The upper extremity was prepped with Betadine and draped in a sterile fashion. A timeout was done identifying correct patient, procedure and extremity everyone in attendance agree with this and verbalized no concerns. The extremity was elevated the tourniquet was inflated to 250 mmHg. Transverse skin incision was extended proximally with a curvilinear skin incision. Copious amount of purulent material was identified extending from the radial aspect of the forearm and within Parona's space. The median nerve and palmar cutaneous branch of the median nerve were identified and protected. Flexor tenosynovitis was noted along the FPL tendon and muscle belly. Flexor tenosynovectomy was performed. Track was extending along the FPL tendon thus the incision was further extended. Synovium was sent for AFB, fungal, aerobic/anaerobic cultures. Nonviable tissues were excised and debrided. The incision was then extended distally in line with the radial border of the ring finger. Blunt dissection was performed through the palmar fascia which was then released. Small amount of scar tissue was noted adjacent to the radial leaflet of the transverse carpal ligament. Dissection was performed distally to identify branch to the first webspace, second webspace and third webspace outside zone of previous surgery there was no evidence of disruption neuro lysis was performed. A transligamentous recurrent motor branch noted along the radial leaflet of the transverse carpal ligament. There was residual tenosynovium surrounding the median nerve at the level of the wrist flexion crease and thus this was released and the median nerve was further neurolysed proximally. No evidence of tract along the radial or ulnar bursa. Wound was copiously irrigated with 2 L of normal saline. Abram drain was placed approximately adjacent to the FPL tendon. Skin incisions were closed with interrupted 4-0 nylon suture. Wound was dressed with Adaptic 4 x 4's and a soft dressing. Tourniquet was deflated patient normal peripheral perfusion. Sponge counts, instrument counts, needle counts were correct. Patient was then awoken from anesthesia. Transferred from the operating room table to the operating room stretcher. There was no intraoperative complications patient tolerated procedure well stable to PACU. Postop plan: Patient will be continued on Vanco and Rocephin until culture results are finalized patient with then be discharged home likely on Bactrim pending culture results. We will continue to monitor glucose levels.
[2020-04-10 19:56] LABS: ANION GAP 6 (5-19); BLOOD UREA NITROGEN 4 mg/dL (7-20); CALCIUM 9.5 mg/dL (8.4-10.2); CARBON DIOXIDE 24 mmol/L (22-30); CHLORIDE 108 mmol/L (98-107); GLUCOSE 120 mg/dL (75-110); POTASSIUM 4.3 mmol/L (3.6-5.0)
[2020-04-10] MEDS: METFORMIN HCL 500 MG TABLET PO SCH (20:14)
[2020-04-10] MEDS: OXYCODONE-ACETAMINOPHEN 5-325 MG TABLET PO PRN (20:24)
[2020-04-10] MEDS: INSULIN GLARGINE,HUM.REC.ANLOG 1,000 UNIT/10 ML VIAL SUBCUT SCH (22:09)
[2020-04-10 22:13] LABS: VANCOMYCIN,TROUGH 10.7 ug/mL (5.0-20.0)
[2020-04-11] MEDS: MORPHINE SULFATE 10 MG/ML INJ IV PRN ×4 (00:47→22:08)
[2020-04-11] MEDS: VANCOMYCIN HCL 1,000 MG in DEXTROSE 5%-WATER 250 ML IV SCH (06:26)
--- NOTE | 2020-04-11 07:25 | PDOC PROGRESS REPORT ---
Subjective Progress Note for:: 04/11/20 Reason For Visit: WRIST SURGERY 40-year-old black female now postop day 1 status post I&D of a surgical site infection and a left carpal tunnel release. Patient resting comfortably in bed. No events overnight. She is unsure as to whether or not her pain is improved. Physical Exam Vital Signs: Temp Pulse Resp BP Pulse Ox 37.3 C 115 H 18 130/68 H 95 04/11/20 04:44 04/11/20 04:44 04/11/20 04:44 04/11/20 04:44 04/11/20 04:44 Intake & Output 04/10/20 04/11/20 04/12/20 06:59 06:59 06:59 Intake Total 1500 1150 Output Total 3 Balance 1500 1147 Weight 83.461 kg 83.44 kg General appearance: PRESENT: no acute distress, mild distress Head exam: PRESENT: normocephalic Respiratory exam: PRESENT: unlabored Cardiovascular exam: PRESENT: RRR Vascular exam: PRESENT: normal capillary refill GI/Abdominal exam: PRESENT: soft Rectal exam: PRESENT: deferred Musculoskeletal exam: PRESENT: other - Left wrist in a compressive dressing. Fingers are visible. Neurovascular semination to the fingers are intact. Results Laboratory Results: 04/10/20 07:02 04/10/20 21:15 04/10/20 04/10/20 04/10/20 07:02 07:02 21:15 WBC 10.4 RBC 3.75 Hgb 11.3 L Hct 33.4 L MCV 89 MCH 30.1 MCHC 33.8 RDW 13.7 Plt Count 243 Seg Neutrophils % 70.2 Sodium 137.6 Potassium 4.3 Chloride 108 H Carbon Dioxide 24 Anion Gap 6 BUN 4 L Creatinine 0.42 L 0.39 L Est GFR ( Amer) > 60 > 60 Glucose 120 H Calcium 9.5 Status: Imported from PACS Assessment & Plan - Diagnosis (1) Post-operative infection Qualifiers: Encounter type: subsequent encounter Postoperative infection type: deep incisional surgical site Qualified Code(s): T81.42XD - Infection following a procedure, deep incisional surgical site, subsequent encounter Is this a current diagnosis for this admission?: Yes Plan: Plan per Dr. Hays is for ongoing antibiotics today with the expected dressing takedown tomorrow morning and plans thereafter. - Time Time Spent with patient: 15-24 minutes Anticipated discharge: Other Anticipated DC Timeframe: Other
[2020-04-11 07:55] LABS: ABSOLUTE EOSINOPHILS # (AUTO) 0.1 10^3/uL (0.0-0.6); ABSOLUTE LYMPHOCYTES (AUTO) 1.5 10^3/uL (0.5-4.7); ABSOLUTE MONOCYTES (AUTO) 0.7 10^3/uL (0.1-1.4); ABSOLUTE NEUT (AUTO) 5.7 10^3/uL (1.7-8.2); BASOPHILS % (AUTO) 0.3 % (0-2); EOSINOPHILS % (AUTO) 1.3 % (0-6); HEMATOCRIT 30.5 % (36.0-47.0); HEMOGLOBIN 10.5 g/dL (12.0-15.5); MEAN CORPUSCULAR HEMOGLOBIN 30.4 pg (27.0-33.4); MEAN CORPUSCULAR HGB CONC 34.3 g/dL (32.0-36.0); MEAN CORPUSCULAR VOLUME 88 fl (80-97); MONOCYTES % (AUTO) 8.9 % (3-13); PLATELET COUNT 226 10^3/uL (150-450); RED BLOOD COUNT 3.45 10^6/uL (3.72-5.28); RED CELL DISTRIBUTION WIDTH 13.2 % (11.5-14.0); SEGMENTED NEUTROPHILS % (AUTO) 70.5 % (42-78); TOTAL CELLS COUNTED % (AUTO) 100 %; WHITE BLOOD COUNT 8.1 10^3/uL (4.0-10.5)
[2020-04-11] MEDS: OXYCODONE-ACETAMINOPHEN 5-325 MG TABLET PO PRN ×2 (08:21→15:58)
[2020-04-11] MEDS: METFORMIN HCL 500 MG TABLET PO SCH ×2 (08:38→15:59)
[2020-04-11] MEDS: INSULIN LISPRO 100 UNIT/ML 3 ML VIAL SUBCUT SCH ×7 (08:39→22:03)
[2020-04-11] MEDS: FLUTICASONE PROPIONATE HFA 110 MCG/PUFF 12 GM MDI IH SCH ×2 (10:25→18:17)
[2020-04-11] MEDS: PREGABALIN 100 MG CAPSULE PO SCH ×3 (10:26→18:17)
[2020-04-11] MEDS: LISINOPRIL 10 MG TABLET PO SCH (10:27)
[2020-04-11] MEDS: HYDROCHLOROTHIAZIDE 12.5 MG TABLET PO SCH (10:28)
[2020-04-11] MEDS: VALACYCLOVIR HCL 500 MG TABLET PO SCH (10:28)
[2020-04-11] MEDS: RINGERS SOLUTION,LACTATED 1,000 ML IV PRN (10:49)
[2020-04-11] MEDS: HYDROXYCHLOROQUINE SULFATE 200 MG TABLET PO SCH ×2 (11:59→18:18)
--- NOTE | 2020-04-11 15:03 | PDOC PROGRESS REPORT ---
Subjective Progress Note for:: 04/11/20 Subjective:: Patient is doing well today. Complains of pain in her left hand. Denies fever or chills. Reason For Visit: WRIST SURGERY Physical Exam Vital Signs: Temp Pulse Resp BP Pulse Ox 98.0 F 104 H 18 131/65 H 100 04/11/20 11:46 04/11/20 11:46 04/11/20 11:46 04/11/20 11:46 04/11/20 11:46 Intake & Output 04/10/20 04/11/20 04/12/20 06:59 06:59 06:59 Intake Total 1500 2150 500 Output Total 3 Balance 1500 2147 500 Weight 83.461 kg 83.44 kg General appearance: PRESENT: no acute distress, cooperative Neck exam: ABSENT: JVD Respiratory exam: PRESENT: unlabored. ABSENT: retraction Extremities exam: PRESENT: other - Left hand clean dressing Neurological exam: PRESENT: alert, awake, oriented to person, oriented to place, oriented to time Psychiatric exam: ABSENT: agitated, anxious Results Laboratory Results: 04/11/20 07:14 04/10/20 21:15 04/10/20 04/10/20 04/11/20 07:02 21:15 07:14 WBC 8.1 RBC 3.45 L Hgb 10.5 L Hct 30.5 L MCV 88 MCH 30.4 MCHC 34.3 RDW 13.2 Plt Count 226 Seg Neutrophils % 70.5 Sodium 137.6 Potassium 4.3 Chloride 108 H Carbon Dioxide 24 Anion Gap 6 BUN 4 L Creatinine 0.42 L 0.39 L Est GFR ( Amer) > 60 > 60 Glucose 120 H Calcium 9.5 Assessment and Plan - Diagnosis (1) Uncontrolled type 2 diabetes mellitus Qualifiers: Glycemic state: with hyperglycemia Qualified Code(s): E11.65 - Type 2 diabetes mellitus with hyperglycemia Is this a current diagnosis for this admission?: Yes Plan: Hemoglobin A1c of 12 indicates very poor control of her diabetes as outpatient. Home regimen: Lantus 38 units nightly, metformin 500 mg 2 times daily, NovoLog s liding scale insulin Continue Lantus 38 units nightly, metformin 500 mg twice daily and have added r apid acting insulin pre-meal 5 units which patient should be discharged with. Also continue sliding scale insulin. Discussed plan with patient and instructed her to keep a log of her blood sugar readings at home TO take units your primary care provider. I will continue to monitor blood sugars. (2) Post-operative infection Qualifiers: Encounter type: subsequent encounter Postoperative infection type: deep incisional surgical site Qualified Code(s): T81.42XD - Infection following a procedure, deep incisional surgical site, subsequent encounter Is this a current diagnosis for this admission?: Yes Plan: Taken to the OR yesterday. Pain control. Will defer rest of management to orthopedics. (3) Hypertension Qualifiers: Hypertension type: essential hypertension Qualified Code(s): I10 - Essential (primary) hypertension Is this a current diagnosis for this admission?: Yes Plan: Continue lisinopril and hydrochlorothiazide. Blood pressure is adequate. (4) Lupus Is this a current diagnosis for this admission?: Yes Plan: Reports history of lupus [uncertain if SLE versus other forms of lupus] on hydroxychloroquine. Continue meds. - Time Time Spent with patient: Less than 15 minutes Anticipated Discharge Disposition: Home, Self Care Anticipated Discharge Timeframe: PER ORTHO
[2020-04-11] MEDS: VANCOMYCIN HCL 1,250 MG in DEXTROSE 5%-WATER 250 ML IV SCH ×2 (15:58→21:56)
[2020-04-11] MEDS: CEFTRIAXONE 2 GM/D5W RTU 2 GM/50 ML RTUPB IV SCH (18:18)
[2020-04-11] MEDS: INSULIN GLARGINE,HUM.REC.ANLOG 1,000 UNIT/10 ML VIAL SUBCUT SCH (21:57)
[2020-04-12] MEDS: MORPHINE SULFATE 10 MG/ML INJ IV PRN ×3 (04:57→23:15)
[2020-04-12] MEDS: VANCOMYCIN HCL 1,250 MG in DEXTROSE 5%-WATER 250 ML IV SCH ×2 (05:05→15:27)
[2020-04-12 07:04] LABS: ABSOLUTE BASOPHILS # (AUTO) 0.1 10^3/uL (0.0-0.2); ABSOLUTE EOSINOPHILS # (AUTO) 0.2 10^3/uL (0.0-0.6); ABSOLUTE LYMPHOCYTES (AUTO) 1.7 10^3/uL (0.5-4.7); ABSOLUTE MONOCYTES (AUTO) 0.7 10^3/uL (0.1-1.4); ABSOLUTE NEUT (AUTO) 3.4 10^3/uL (1.7-8.2); BASOPHILS % (AUTO) 0.9 % (0-2); EOSINOPHILS % (AUTO) 2.6 % (0-6); HEMATOCRIT 30.5 % (36.0-47.0); HEMOGLOBIN 10.3 g/dL (12.0-15.5); LYMPHOCYTES % (AUTO) 28.9 % (13-45); MEAN CORPUSCULAR HGB CONC 33.8 g/dL (32.0-36.0); MEAN CORPUSCULAR VOLUME 89 fl (80-97); MONOCYTES % (AUTO) 11.2 % (3-13); PLATELET COUNT 240 10^3/uL (150-450); RED BLOOD COUNT 3.44 10^6/uL (3.72-5.28); RED CELL DISTRIBUTION WIDTH 13.6 % (11.5-14.0); SEGMENTED NEUTROPHILS % (AUTO) 56.4 % (42-78); TOTAL CELLS COUNTED % (AUTO) 100 %
[2020-04-12] MEDS: INSULIN LISPRO 100 UNIT/ML 3 ML VIAL SUBCUT SCH ×7 (08:24→21:37)
[2020-04-12] MEDS: METFORMIN HCL 500 MG TABLET PO SCH ×2 (08:25→17:40)
--- NOTE | 2020-04-12 09:35 | PDOC PROGRESS REPORT ---
Subjective Progress Note for:: 04/12/20 Subjective:: Patient's forearm discomfort has notably improved but continues to have residual numbness along the fingertips. Patient states her range of motion of her digits improved as well but still has discomfort and difficulty making a full fist. Denies fever chills or sweats. Reason For Visit: WRIST SURGERY Physical Exam Vital Signs: Temp Pulse Resp BP Pulse Ox 98.4 F 91 18 147/80 H 97 04/12/20 07:38 04/12/20 07:38 04/12/20 07:38 04/12/20 07:38 04/12/20 07:38 Intake & Output 04/11/20 04/12/20 04/13/20 06:59 06:59 06:59 Intake Total 2150 1400 Output Total 3 Balance 2147 1400 Weight 83.44 kg Musculoskeletal exam: PRESENT: other - Left upper extremity: Dressing changed today. Surgical incision well approximated no erythema. Cloudy drainage from the drainage site no purulence noted. Tenderness on the forearm notably improved. Compartment soft and compressible no sign of compartment syndrome. Intact DIP/PIP/MP flexion/extension lacks tip to palm flexion. EPL/FPL intact. Intact sensation to light touch proximal to the DIP joint decreased sensation to light touch mainly along the middle finger distal to the DIP joint. Cap refill less than 2 seconds. Normal skin turgor. Results Laboratory Results: 04/12/20 06:41 04/10/20 21:15 04/12/20 06:41 WBC 6.0 RBC 3.44 L Hgb 10.3 L Hct 30.5 L MCV 89 MCH 30.0 MCHC 33.8 RDW 13.6 Plt Count 240 Seg Neutrophils % 56.4 04/10/20 18:15 Wrist - Left Gram Stain - Final 04/10/20 18:15 Wrist - Left Wound Culture - Final Staphylococcus Aureus No Anaerobic Organisms Assessment & Plan - Diagnosis (1) Post-operative infection Qualifiers: Encounter type: subsequent encounter Postoperative infection type: deep incisional surgical site Qualified Code(s): T81.42XD - Infection following a procedure, deep incisional surgical site, subsequent encounter Is this a current diagnosis for this admission?: Yes Plan: Patient is showing improvement after irrigation debridement of the left forearm at this point patient has been encouraged to continue range of motion of her digits along with elevation. Culture results are positive for clindamycin resistant but methicillin sensitive staph aureus barring any setback patient w ill be stable for discharge to home on 04/13/2020 on Bactrim. Patient to follow- up with me on 04/16/2020 for recheck. - Time Time Spent with patient: Less than 15 minutes
--- NOTE | 2020-04-12 10:28 | PDOC PROGRESS REPORT ---
Subjective Progress Note for:: 04/12/20 Subjective:: Patient feels well just complains of hand pain. Reason For Visit: WRIST SURGERY Physical Exam Vital Signs: Temp Pulse Resp BP Pulse Ox 98.4 F 91 18 147/80 H 97 04/12/20 07:38 04/12/20 07:38 04/12/20 07:38 04/12/20 07:38 04/12/20 07:38 Intake & Output 04/11/20 04/12/20 04/13/20 06:59 06:59 06:59 Intake Total 2150 1400 Output Total 3 Balance 2147 1400 Weight 83.44 kg General appearance: PRESENT: no acute distress, cooperative Neck exam: ABSENT: JVD Respiratory exam: PRESENT: unlabored. ABSENT: accessory muscle use, retraction Neurological exam: PRESENT: alert, awake, oriented to person, oriented to place, oriented to time, oriented to situation Focused psych exam: ABSENT: pressured speech Skin exam: ABSENT: jaundice Results Laboratory Results: 04/12/20 06:41 04/10/20 21:15 04/12/20 06:41 WBC 6.0 RBC 3.44 L Hgb 10.3 L Hct 30.5 L MCV 89 MCH 30.0 MCHC 33.8 RDW 13.6 Plt Count 240 Seg Neutrophils % 56.4 04/10/20 18:15 Wrist - Left Gram Stain - Final 04/10/20 18:15 Wrist - Left Wound Culture - Final Staphylococcus Aureus No Anaerobic Organisms Assessment and Plan - Diagnosis (1) Uncontrolled type 2 diabetes mellitus Qualifiers: Glycemic state: with hyperglycemia Qualified Code(s): E11.65 - Type 2 diabetes mellitus with hyperglycemia Is this a current diagnosis for this admission?: Yes (2) Post-operative infection Qualifiers: Encounter type: subsequent encounter Postoperative infection type: deep incisional surgical site Qualified Code(s): T81.42XD - Infection following a procedure, deep incisional surgical site, subsequent encounter Is this a current diagnosis for this admission?: Yes (3) Hypertension Qualifiers: Hypertension type: essential hypertension Qualified Code(s): I10 - Essential (primary) hypertension Is this a current diagnosis for this admission?: Yes (4) Lupus Is this a current diagnosis for this admission?: Yes - Plan Summary Summary: I have sent prescription for NovoLog 6 units before meals to patient's pharmacy. I have given patient instructions on how to monitor her blood sugar and to make a diary of her blood sugar readings and take with her to see a primary care provider. Patient will continue her other diabetic regimen as before. Outpatient follow-up with PCP. I will sign off. - Time Time Spent with patient: Less than 15 minutes Anticipated Discharge Disposition: Home, Self Care Anticipated Discharge Timeframe: as per Ortho
[2020-04-12] MEDS: FLUTICASONE PROPIONATE HFA 110 MCG/PUFF 12 GM MDI IH SCH ×2 (11:17→19:18)
[2020-04-12] MEDS: VALACYCLOVIR HCL 500 MG TABLET PO SCH (11:18)
[2020-04-12] MEDS: PREGABALIN 100 MG CAPSULE PO SCH ×3 (11:18→17:39)
[2020-04-12] MEDS: HYDROXYCHLOROQUINE SULFATE 200 MG TABLET PO SCH ×2 (11:19→19:18)
[2020-04-12] MEDS: LISINOPRIL 10 MG TABLET PO SCH (11:19)
[2020-04-12] MEDS: HYDROCHLOROTHIAZIDE 12.5 MG TABLET PO SCH (11:20)
[2020-04-12] MEDS: OXYCODONE-ACETAMINOPHEN 5-325 MG TABLET PO PRN ×2 (13:17→20:02)
[2020-04-12 15:00] LABS: VANCOMYCIN,TROUGH 13.1 ug/mL (5.0-20.0)
[2020-04-12] MEDS: CEFTRIAXONE 2 GM/D5W RTU 2 GM/50 ML RTUPB IV SCH (19:22)
[2020-04-12] MEDS: RINGERS SOLUTION,LACTATED 1,000 ML IV PRN (19:23)
[2020-04-12] MEDS: INSULIN GLARGINE,HUM.REC.ANLOG 1,000 UNIT/10 ML VIAL SUBCUT SCH (21:37)
[2020-04-13] MEDS: VANCOMYCIN HCL 1,250 MG in DEXTROSE 5%-WATER 250 ML IV SCH ×2 (01:50→12:17)
--- NOTE | 2020-04-13 09:15 | PDOC DISCHARGE SUMMARY ---
General - Admit/Disc Date/PCP Admission Date/Primary Care Provider: 04/09/20 18:18 Discharge Date: 04/13/20 - Discharge Diagnosis Final Diagnosis: Status post I&D of left carpal tunnel incision - Assessment Summary: I have sent prescription for NovoLog 6 units before meals to patient's pharmacy. I have given patient instructions on how to monitor her blood sugar and to make a diary of her blood sugar readings and take with her to see a primary care provider. Patient will continue her other diabetic regimen as before. Outpatient follow-up with PCP. I will sign off. - Additional Information Resuscitation Status: Full Code Discharge Diet: As Tolerated Discharge Activity: No Lifting Over 10 Pounds, No Lifting/Push/Pulling Referrals: DARRYL KING MD [ACTIVE STAFF] - DONG REES DO [ACTIVE STAFF] - (Follow up appt. made for April 162019 at 130pm) Prescriptions: Sulfamethoxazole/Trimethoprim [Bactrim Ds Tablet] 2 each PO BID PRN #40 tablet PRN Reason: Insulin Aspart [Novolog] 6 unit SQ AC #10 ml Oxycodone HCl/Acetaminophen [Percocet 5-325 mg Tablet] 1 tab PO Q6 PRN #25 tab PRN Reason: Home Medications: Albuterol Sulfate [Ventolin Hfa 8 gm Mdi (1 Mdi/ER Disp)] 2 puff IH ASDIR PRN 01/31/20 Fluticasone Propionate [Flovent Hfa] 2 puff IH BID 01/31/20 Hydrochlorothiazide 12.5 mg PO DAILY 01/31/20 Hydroxychloroquine Sulfate [Plaquenil 200 mg Tablet] 400 mg PO QHS 01/31/20 Insulin Aspart [Novolog Flexpen] 0 unit SUBCUT .SLD SCALE 01/31/20 Insulin Glargine,Hum.rec.anlog [Lantus Insulin 100 Unit/mL Insulin Pen] 38 unit SUBCUT QHS 01/31/20 Lisinopril [Zestril] 20 mg PO DAILY 01/31/20 Pregabalin [Lyrica] 200 mg PO TID 01/31/20 Valacyclovir HCl [Valacyclovir] 1,000 mg PO DAILY 01/31/20 Meloxicam [Mobic 7.5 mg Tablet] 7.5 mg PO DAILY 04/09/20 Oxycodone HCl/Acetaminophen [Percocet 5-325 mg Tablet] 1 tab PO Q6 PRN #25 tab 04/10/20 Sulfamethoxazole/Trimethoprim [Bactrim Ds Tablet] 2 each PO BID PRN #40 tablet 04/10/20 Insulin Aspart [Novolog] 6 unit SQ AC #10 ml 04/12/20 Additional Information: Patient's incision is clean dry and intact patient is doing well cultures show MSSA patient is sent off on Keflex and Bactrim for coverage History of Present Illiness History of Present Illness: MARIANA GORDON is a 40 year old female Physical Exam Vital Signs: Temp Pulse Resp BP Pulse Ox 98.3 F 87 18 138/83 H 100 04/13/20 08:01 04/13/20 08:01 04/13/20 08:01 04/13/20 08:01 04/13/20 08:01 Intake & Output 04/12/20 04/13/20 04/14/20 06:59 06:59 06:59 Intake Total 2700 1012 Balance 2700 1012 Weight 83.2 kg Results Laboratory Results: WBC 6.0 10^3/uL (4.0-10.5) 04/12/20 06:41 RBC 3.44 10^6/uL (3.72-5.28) L 04/12/20 06:41 Hgb 10.3 g/dL (12.0-15.5) L 04/12/20 06:41 Hct 30.5 % (36.0-47.0) L 04/12/20 06:41 MCV 89 fl (80-97) 04/12/20 06:41 MCH 30.0 pg (27.0-33.4) 04/12/20 06:41 MCHC 33.8 g/dL (32.0-36.0) 04/12/20 06:41 RDW 13.6 % (11.5-14.0) 04/12/20 06:41 Plt Count 240 10^3/uL (150-450) 04/12/20 06:41 Lymph % (Auto) 28.9 % (13-45) 04/12/20 06:41 [place] % (Auto) 11.2 % (3-13) 04/12/20 06:41 Eos % (Auto) 2.6 % (0-6) 04/12/20 06:41 Baso % (Auto) 0.9 % (0-2) 04/12/20 06:41 Absolute Neuts (auto) 3.4 10^3/uL (1.7-8.2) 04/12/20 06:41 Absolute Lymphs (auto) 1.7 10^3/uL (0.5-4.7) 04/12/20 06:41 Absolute Monos (auto) 0.7 10^3/uL (0.1-1.4) 04/12/20 06:41 Absolute Eos (auto) 0.2 10^3/uL (0.0-0.6) 04/12/20 06:41 Absolute Basos (auto) 0.1 10^3/uL (0.0-0.2) 04/12/20 06:41 Seg Neutrophils % 56.4 % (42-78) 04/12/20 06:41 Sodium 137.6 mmol/L (137-145) 04/10/20 07:02 Potassium 4.3 mmol/L (3.6-5.0) 04/10/20 07:02 Chloride 108 mmol/L (98-107) H 04/10/20 07:02 Carbon Dioxide 24 mmol/L (22-30) 04/10/20 07:02 Anion Gap 6 (5-19) 04/10/20 07:02 BUN 4 mg/dL (7-20) L 04/10/20 07:02 Creatinine 0.44 mg/dL (0.52-1.25) L 04/12/20 13:57 Est GFR ( Amer) > 60 (>60) 04/12/20 13:57 Est GFR (MDRD) Non-Af > 60 (>60) 04/12/20 13:57 Glucose 120 mg/dL (75-110) H 04/10/20 07:02 POC Glucose 239 mg/dL (70-110) H 04/13/20 08:21 Hemoglobin A1c % 12.0 % (4.7-6.0) H 04/09/20 19:00 Calcium 9.5 mg/dL (8.4-10.2) 04/10/20 07:02 Time Trough Drawn 1357 04/12/20 13:57 Vancomycin Trough 13.1 ug/mL (5.0-20.0) 04/12/20 13:57 SARS-CoV-2 (PCR) NEGATIVE (NEGATIVE) 04/09/20 21:45
[2020-04-13] MEDS: INSULIN LISPRO 100 UNIT/ML 3 ML VIAL SUBCUT SCH ×2 (09:40→09:41)
[2020-04-13] MEDS: LISINOPRIL 10 MG TABLET PO SCH (09:42)
[2020-04-13] MEDS: HYDROCHLOROTHIAZIDE 12.5 MG TABLET PO SCH (09:43)
[2020-04-13] MEDS: HYDROXYCHLOROQUINE SULFATE 200 MG TABLET PO SCH (09:43)
[2020-04-13] MEDS: METFORMIN HCL 500 MG TABLET PO SCH (09:43)
[2020-04-13] MEDS: VALACYCLOVIR HCL 500 MG TABLET PO SCH (09:44)
[2020-04-13] MEDS: PREGABALIN 100 MG CAPSULE PO SCH (09:44)
[2020-04-13] MEDS: MORPHINE SULFATE 10 MG/ML INJ IV PRN (09:45)
[2020-04-13] MEDS: FLUTICASONE PROPIONATE HFA 110 MCG/PUFF 12 GM MDI IH SCH (09:45)
[2020-04-13] MEDS: OXYCODONE-ACETAMINOPHEN 5-325 MG TABLET PO PRN (10:02)
[2020-04-13 12:15] VITALS: BP 131/65
== END 2020-04-13 13:20 | disposition home or self-care (01) | DRG 857 ==
LOC: 2N 17:25 → INTOOBSV 18:18 → OBSVTOIN 18:18
PROVIDERS: ADMIT Orthopaedic Surgery; ATTEND Orthopaedic Surgery
PROC: 0LB80ZZ Excision of Left Hand Tendon, Open Approach (ICD-10-PCS; 2020-04-10)
PROC: 01N50ZZ Release Median Nerve, Open Approach (ICD-10-PCS; 2020-04-10)
PROC: 0LB60ZZ Excision of Left Lower Arm and Wrist Tendon, Open Approach (ICD-10-PCS; principal; 2020-04-10 16:45)
DX: T81.42XA Infection following a procedure, deep incisional surgical site, initial encounter (principal); Z16.29 Resistance to other single specified antibiotic; E11.69 Type 2 diabetes mellitus with other specified complication; M65.832 Other synovitis and tenosynovitis, left forearm; E11.65 Type 2 diabetes mellitus with hyperglycemia; E11.40 Type 2 diabetes mellitus with diabetic neuropathy, unspecified; E78.5 Hyperlipidemia, unspecified; J45.909 Unspecified asthma, uncomplicated; M19.90 Unspecified osteoarthritis, unspecified site; F32.9 Major depressive disorder, single episode, unspecified; M32.9 Systemic lupus erythematosus, unspecified; B95.61 Methicillin susceptible Staphylococcus aureus infection as the cause of diseases classified elsewhere; M79.7 Fibromyalgia; G89.29 Other chronic pain; M54.5 Low back pain; M35.00 Sjogren syndrome, unspecified; Z87.891 Personal history of nicotine dependence; Z91.5 Personal history of self-harm; Z79.51 Long term (current) use of inhaled steroids; Z79.4 Long term (current) use of insulin; Z88.8 Allergy status to other drugs, medicaments and biological substances
CPT/HCPCS: 1810; 36415; 80048; 80202; 82565; 82962; 83036; 85025; 87040; 87070; 87075; 87077; 87101; 87186; 87205; 87635; 99140; C9803; J0330; J0696; J1815; J2250; J2270; J2405; J2704; J3010; J3370; J3490; J7060; J7120

== ENCOUNTER → 2020-06-26 | Outpatient (CLI) | payer BC ==
[2020-06-26 13:20] LABS: ABSOLUTE EOSINOPHILS # (AUTO) 0.1 10^3/uL (0.0-0.6); ABSOLUTE LYMPHOCYTES (AUTO) 1.9 10^3/uL (0.5-4.7); ABSOLUTE MONOCYTES (AUTO) 0.5 10^3/uL (0.1-1.4); ABSOLUTE NEUT (AUTO) 5.2 10^3/uL (1.7-8.2); BASOPHILS % (AUTO) 0.3 % (0-2); EOSINOPHILS % (AUTO) 0.8 % (0-6); HEMATOCRIT 36.7 % (36.0-47.0); HEMOGLOBIN 12.6 g/dL (12.0-15.5); MEAN CORPUSCULAR HEMOGLOBIN 29.5 pg (27.0-33.4); MEAN CORPUSCULAR HGB CONC 34.2 g/dL (32.0-36.0); MEAN CORPUSCULAR VOLUME 86 fl (80-97); MONOCYTES % (AUTO) 6.4 % (3-13); PLATELET COUNT 259 10^3/uL (150-450); RED BLOOD COUNT 4.26 10^6/uL (3.72-5.28); RED CELL DISTRIBUTION WIDTH 13.2 % (11.5-14.0); SEGMENTED NEUTROPHILS % (AUTO) 67.5 % (42-78); TOTAL CELLS COUNTED % (AUTO) 100 %; WHITE BLOOD COUNT 7.7 10^3/uL (4.0-10.5)
[2020-06-26 13:38] LABS: ALBUMIN 4.4 g/dL (3.5-5.0); ALKALINE PHOSPHATASE 119 U/L (38-126); ANION GAP 15 (5-19); ASPARTATE AMINO TRANSFERASE 17 U/L (14-36); BILIRUBIN,DIRECT 0.3 mg/dL (0.0-0.4); BILIRUBIN,TOTAL 0.5 mg/dL (0.2-1.3); CALCIUM 9.6 mg/dL (8.4-10.2); CARBON DIOXIDE 19 mmol/L (22-30); CHLORIDE 104 mmol/L (98-107); CHOLESTEROL 196.51 mg/dL (0-200); GLUCOSE 291 mg/dL (75-110); POTASSIUM 4.4 mmol/L (3.6-5.0); TOTAL PROTEIN 7.4 g/dL (6.3-8.2); TRIGLYCERIDES 95 mg/dL (<150)
[2020-06-26 13:39] LABS: BLOOD UREA NITROGEN 6 mg/dL (7-20)
[2020-06-26 13:49] LABS: DIRECT LDL 136 mg/dL (<100)
[2020-06-27 14:37] LABS: CREATININE URINE 130.1 mg/dL (Not Estab.); MICROALBUMIN URINE 12.8 ug/mL (Not Estab.)
== END ==
LOC: OD 12:07
PROVIDERS: ATTEND Family Medicine
DX: R10.814 Left lower quadrant abdominal tenderness (principal); E78.5 Hyperlipidemia, unspecified; E11.65 Type 2 diabetes mellitus with hyperglycemia
CPT/HCPCS: 36415; 80053; 80061; 82043; 82570; 83036; 85025

== ENCOUNTER 2020-08-28 18:51 | Emergency (ER) | payer BC ==
[2020-08-28 19:00] VITALS: BP 152/95
[2020-08-28] MEDS ORDERED: DEXAMETHASONE 4 MG TABLET PO ONE (19:14)
--- NOTE | 2020-08-28 19:19 | ER Document Report ---
ED Respiratory Problem - General Chief Complaint: Cough Stated Complaint: COUGH,HEADACHE Time Seen by Provider: 08/28/20 19:08 Primary Care Provider: DARRYL KING MD [Primary Care Provider] - Follow up as needed Notes: CHIEF COMPLAINT: Cough and shortness of breath concern for Covid HPI: 40-year-old female with history of tachycardia that is being worked up by both her primary and [facility] cardiology presenting for concern for Covid test. Patient states that she began feeling poorly yesterday. Patient states that she developed body ache and low-grade fever. Patient states that she took [id number] sinus medicine today in the morning and began using her inhaler this afternoon but felt like it prompted a coughing episode. Patient has a history of asthma states that the shortness of breath she had felt like her asthma. She is still very very mildly short of breath does not have any chest discomfort. Patient states that she has had tachycardia issues for several years and this is why she was referred to cardiology but was not able to follow- up there yet because they had a positive Covid case in our pending a new appointment for her ROS: See HPI - all other systems were reviewed and are otherwise negative Constitutional: no fever Eyes: no drainage, no blurred vision ENT: no runny nose, no sore throat Cardiovascular: no chest pain Resp: + SOB, + cough GI: no vomiting, no diarrhea, no abdominal pain : no dysuria Integumentary: no rash Allergy: no hives Musculoskeletal: no extremity pain or swelling Neurological: no numbness/tingling, no weakness MEDICATIONS: I agree with the patient medications as charted by the RN. ALLERGIES: I agree with the allergies as charted by the RN. PAST MEDICAL HISTORY/PAST SURGICAL HISTORY: Reviewed and agree as charted by RN. SOCIAL HISTORY: Reviewed and agree as charted by RN. FAMILY HISTORY: No significant familial comorbid conditions directly related to patient complaint EXAM: Reviewed vital signs as charted by RN. CONSTITUTIONAL: Alert and oriented and responds appropriately to questions. Well-appearing; well-nourished HEAD: Normocephalic; atraumatic EYES: PERRL; Conjunctivae clear, sclerae non-icteric ENT: normal nose; no rhinorrhea; moist mucous membranes; pharynx without lesions noted, no uvula edema or deviation, no tonsillar hypertrophy, phonation normal NECK: Supple without meningismus; non-tender; no cervical lymphadenopathy, no masses CARD: RRR; no murmurs, no clicks, no rubs, no gallops; symmetric distal pulses RESP: Normal chest excursion without splinting or tachypnea; breath sounds clear and equal bilaterally; no wheezes, no rhonchi, no rales, pulse oximetry 98% on room air not hypoxic ABD/GI: Normal bowel sounds; non-distended; soft, non-tender, no rebound, no guarding; no palpable organomegaly or masses. BACK: The back appears normal and is non-tender to palpation, there is no CVA tenderness EXT: Normal ROM in all joints; non-tender to palpation; no cyanosis, no effusions, no edema SKIN: Normal color for age and race; warm; dry; good turgor; no acute lesions noted NEURO: Moves all extremities equally; Motor and sensory function intact PSYCH: The patient's mood and manner are appropriate. Grooming and personal hygiene are appropriate. MDM: 40-year-old female essentially presenting because she is concerned about Covid and requesting a Covid test. She has a history of tachycardia heart rate is elevated at 114 on my auscultation. She has no chest pain with this. She reports a history of tachycardia currently being worked up by her primary and referral to cardiology already in place. This is not new for her. She states she has a history of asthma her shortness of breath this afternoon she states felt like her asthma. We will place her on a course of Decadron. Given the sh ort-term course of her illness unlikely she has pneumonia at this time. No indication for imaging. Patient will continue her inhaler. Follow-up through her primary care provider, she will be a person under investigation for COVID-19 at this time pending her test results. She will return in 24 to 48 hours if symptoms worsen The patient was evaluated during the global COVID-19 pandemic and that diagnosis was suspected/considered upon their initial presentation. Their evaluation, treatment and testing was consistent with current guidelines for patients who present with complaints or symptoms that may be related to COVID-19 TRAVEL OUTSIDE OF THE [place] IN LAST 30 DAYS: No - Related Data Allergies/Adverse Reactions: nickel Allergy (Intermediate, Verified 02/03/20 09:16) RASH Past Medical History - Social History Smoking Status: Never Smoker Frequency of alcohol use: Occasional Drug Abuse: None Family History: DM, Hypertension, Other - CHF - Past Medical History Cardiac Medical History: Reports: Hx Hypercholesterolemia Denies: Hx Heart Attack, Hx Hypertension Pulmonary Medical History: Reports: Hx Asthma - MILD Denies: Hx Bronchitis, Hx COPD, Hx Pneumonia Neurological Medical History: Denies: Hx Cerebrovascular Accident, Hx Seizures Endocrine Medical History: Reports: Hx Diabetes Mellitus Type 2 Renal/ Medical History: Denies: Hx Peritoneal Dialysis GI Medical History: Reports: Hx Irritable Bowel Musculoskeletal Medical History: Reports Hx Arthritis Psychiatric Medical History: Reports: Hx Depression Past Surgical History: Reports: Hx Orthopedic Surgery - Carpal tunnel release - Immunizations Hx Diphtheria, Pertussis, Tetanus Vaccination: No Physical Exam - Vital signs Vitals: Temp Pulse Resp BP Pulse Ox 99.0 F 120 H 20 152/95 H 98 08/28/20 18:57 08/28/20 18:57 08/28/20 18:57 08/28/20 18:57 08/28/20 18:57 Course - Vital Signs Vital signs: Temp Pulse Resp BP Pulse Ox 99.0 F 120 H 20 152/95 H 98 08/28/20 18:57 08/28/20 18:57 08/28/20 18:57 08/28/20 18:57 08/28/20 18:57 - Laboratory Results Critical Laboratory Results Reviewed: No Critical Results - Radiology Results Critical Radiology Results Reviewed: No Critical Results Discharge - Discharge Clinical Impression: Person under investigation for COVID-19, Cough, Tachycardia Condition: Stable Disposition: HOME, SELF-CARE Additional Instructions: You are considered a person under investigation for COVID-19 at this time so quarantine at home pending your test results. Follow-up through your primary care provider return to the emergency department if you have worsening shortness of breath or onset of chest pain. Use the Decadron as prescribed. You were given today's dose in the emergency department. Your test results may take up to 48 hours to return. You should receive notification from the hospital about your test results Prescriptions: Dexamethasone [Decadron 4 Mg Tablet] 4 mg PO DAILY #7 tablet Forms: Return to Work Referrals: DARRYL KING MD [Primary Care Provider] - Follow up as needed
== END 2020-08-28 19:30 | disposition home or self-care (01) ==
LOC: ER 18:51
DX: U07.1 COVID-19 (principal); R05 Cough; R06.02 Shortness of breath; R50.9 Fever, unspecified; R00.0 Tachycardia, unspecified; J45.909 Unspecified asthma, uncomplicated; Z79.899 Other long term (current) drug therapy; Z91.048 Other nonmedicinal substance allergy status
CPT/HCPCS: 99283; 0202U ×23; J8540